=== PATIENT | male | born 1985 | race Caucasian/White ===

== ENCOUNTER 2022-01-06 11:12 | Emergency (ER) | payer OTHER, SELFPAY ==
[2022-01-06 11:20] VITALS: BP 113/73; PULSE 88; RESP 18; TEMP 35.9; O2SAT 99
--- NOTE | 2022-01-06 11:35 | ED.EYEPROB ---
HPI - Eye Problem General Chief complaint: Eye Problems Stated complaint: EYE REDNESS Time Seen by Provider: 01/06/22 11:35 Source: patient, RN notes reviewed and old records reviewed Mode of arrival: ambulatory Limitations: no limitations History of Present Illness HPI Narrative: 36 year old male who presents to [facility] care with complaints of left eye redness, feelings of irritation and some noted increase in eye drainage in the morning since Tuesday. Patient reports that he normally wears contacts and took contacts out on Tuesday and has been wearing his glasses. Patient denies any pain to his left eye or any itching, reports that he has had no change in his vision. chief complaint: eye redness Onset (ago): day(s) Location: left eye Related Data Home Medications Medication Instructions Recorded Confirmed sertraline 25 mg tablet tablet 01/06/22 Allergies Allergy/AdvReac Type Severity Reaction Status Date / Time bupropion Allergy Mild Hives / Verified 09/16/17 09:31 Red Face Review of Systems Review of Systems: CONSTITUTIONAL: Denies fever, chills, or sweats. EYES: Denies visual changes, positive redness, or discharge left eye ENT: Denies rhinorrhea, congestion, sore throat, or otalgia. CARDIOVASCULAR: Denies chest pain, palpitations, or edema. RESPIRATORY: Denies cough or dyspnea. GASTROINTESTINAL: Denies abdominal pain, nausea, vomiting, or diarrhea. GENITOURINARY: Denies dysuria or hematuria. SKIN: Denies rash or itching. MUSCULOSKELETAL: Denies back pain, joint pain, or myalgia. NEUROLOGIC: Denies headache, numbness, or weakness. PSYCHIATRIC:Positive for history of anxiety or depression. All systems reviewed & are unremarkable except as noted in HPI and below PMFSH Past Medical History Medical History (Updated 01/06/22 @ 12:19 by Zarina Max NP) Anxiety with depression Melanoma in situ of back Surgical History Surgical History (Updated 01/06/22 @ 12:20 by Zarina Max NP) H/O vasectomy History of melanoma excision [place] teeth extracted Family History Family History (Updated 01/06/22 @ 12:19 by Zarina Max NP) Grandparent Acute myocardial infarction Diabetes mellitus Dementia Social History Social History (Updated 01/06/22 @ 11:49 by Zarina Max NP) Smoking status: Never smoker Alcohol intake: current Alcohol use details: Social Substance use type: does not use Living arrangements: with family Gender identity (if verbalized by the patient): Male Comments At time of signature, agree with nursing past medical, surgical, social and family history. There is no relevant family history pertinent to the presenting complaint Exam Narrative: GENERAL: Well-appearing, well-nourished, and in no acute distress. HEAD: Normocephalic, atraumatic. EYES: PERRLA and EOMI.sclera red left eye and mild conjunctiva redness left eye with small amount of white discharge noted, no itching or any acute pain to left eye, no visual changes ENT: Nares clear, no rhinorrhea or epistaxis. Mucous membranes moist. NECK: Supple.no lymphadenopathy CHEST: Clear to auscultation. No respiratory distress.SAO2 99% on room air HEART: Regular rate and rhythm. No murmur heard. Normal peripheral pulses. ABDOMEN: Soft, nontender, nondistended, normal active bowel sounds. EXTREMITIES: Normal range of motion. No edema. SKIN: Warm, dry, no rash. NEURO: No focal deficits. Alert and oriented x3. Course Course Level of Care: Express Care Visit Vital Signs Vital signs: Vital Signs Temperature 35.9 C L 01/06/22 11:20 Pulse Rate 88 01/06/22 11:20 Respiratory Rate 18 01/06/22 11:20 Blood Pressure 113/73 01/06/22 11:20 Pulse Oximetry 99 01/06/22 11:20 Temperature 35.9 C L 01/06/22 11:20 Pulse Rate 88 01/06/22 11:20 Respiratory Rate 18 01/06/22 11:20 Blood Pressure 113/73 01/06/22 11:20 Pulse Oximetry 99 01/06/22 11:20 MDM - Eye Problem Diffe
== END 2022-01-06 12:02 | disposition home or self-care (01) ==
PROVIDERS: Emergency Provider Registered Nurse
DX: H10.9 Unspecified conjunctivitis (principal)
CPT/HCPCS: 99203; G0463